=== PATIENT | male | born 1950 | race Caucasian/White ===

== ENCOUNTER 2020-02-04 14:35 | Outpatient (CLI) | payer OTHER ==
[2020-02-04] MEDS ORDERED: FENTANYL PF 100 MCG/2ML ONE (15:38)
[2020-02-04] MEDS ORDERED: MIDAZOLAM 1 MG/ML, 5ML ONE (15:38)
[2020-02-04] MEDS ORDERED: FLUMAZENIL 0.1 MG/1 ML, 5ML ONE (15:39)
[2020-02-04] MEDS ORDERED: NALOXONE 1 MG/ML, 2ML ONE (15:39)
== END 2020-02-04 23:59 | disposition home or self-care (01) ==
LOC: RAD 14:35
DX: M54.16 Radiculopathy, lumbar region (principal); M48.061 Spinal stenosis, lumbar region without neurogenic claudication; I10 Essential (primary) hypertension; I48.91 Unspecified atrial fibrillation; I25.10 Atherosclerotic heart disease of native coronary artery without angina pectoris; G47.33 Obstructive sleep apnea (adult) (pediatric); E78.5 Hyperlipidemia, unspecified; Z87.891 Personal history of nicotine dependence; Z88.0 Allergy status to penicillin; Z88.8 Allergy status to other drugs, medicaments and biological substances; Z95.1 Presence of aortocoronary bypass graft
CPT/HCPCS: 72148; 99156; 99157; J2250; J3010; J2310